=== PATIENT | male | born 1975 | race Two or more races ===

== ENCOUNTER 2025-05-20 16:31 | Emergency (ER) | payer MEDICAID, OTHER ==
[~2025-05-20] VITALS: Ht 170.2 cm; Wt 60.0 kg
[2025-05-20 18:27] VITALS: BP 127/80; PULSE 92; RESP 18; TEMP 97.5; O2SAT 98
[2025-05-20] MEDS ORDERED: AZIT-43 PO (18:37)
--- NOTE | 2025-05-20 18:37 | ED.PDOC ---
SOB-HPI HPI Comments C/O COUGH WITH BRIGHT RED PHLEM X 3 DAYS. REPORTS CHILLS AND "SWEATING IN SLEEP" STATES HE SMOKES MARIJUANA "ALL DAY" DENIES [place], SOB OR CHEST PAIN Chief Complaint: Cough Time Seen by MD: 18:21 Reviewed notes: Nurses Notes, Medications, Allergies Information Source: Patient Mode of Arrival: Ambulatory All Other Systems: Reviewed and Negative (SEE HPI) Physical Exam General Appearance: No Apparent Distress, Normal HEENT: Pharyngeal Erythema, TMs Normal Neck: Full Range of Motion, Non-Tender Respiratory: Chest Non-Tender, No Respiratory Distress, Rhonchi Cardiovascular: No Edema, No JVD, No Murmur, No Gallop, Normal Peripheral Pulses, Regular Rate/Rhythm Breast Exam: Deferred Gastrointestinal: Non Tender, Soft Genitalia: Deferred Pelvic: Deferred Rectal: Deferred Extremities: Normal capillary refill, Normal inspection, Normal range of motion, Non-tender, No pedal edema Musculoskeletal : Apperance: Normal Neurologic: Alert, No Motor Deficits, Normal Affect, Normal Mood, No Sensory Deficits Cerebellar Function: Normal Reflexes: NOT DONE Skin: Dry, Normal Color, Warm Lymphatic: No Adenopathy Was a procedure done? Was a procedure done?: No Differential Dx Differential Diagnosis: Pneumonia, Pharyngitis, URI X-Ray, Labs, Meds, VS Vital Signs Date Time Temp Pulse Resp B/P (MAP) Pulse Ox O2 Delivery O2 Flow Rate FiO2 05/20/25 18:27 97.5 92 18 127/80 (96) 98 97.5 05/20/25 16:32 98.5 90 20 182/82 96 98.5 Time of 1ST Reevaluation: 18:21 Reevaluation 1ST: Unchanged Time of 2ND Reevaluation: 18:36 Reevaluation 2ND: Improved Patient Education/Counseling: Diagnosis, Treatment, Need For Follow Up Family Education/Counseling: No Family Present SEPSIS Sepsis Screen Date sepsis recognized/suspect: May 20, 2025 Time Sepsis recognized/suspect: 1634 Recent Procedure: No On Antibiotic Therapy: No Respiratory Rate >20: No Heart Rate >90: No Temp<36 C (96.8 F) or >38.3 C: No SBP <90 or MAP <65 mmHG: No New Acute Mental Status Change: No Is the patient on CPAP, BIPAP,: No Vital Signs Date Time Temp Pulse Resp B/P (MAP) Pulse Ox O2 Delivery O2 Flow Rate FiO2 05/20/25 18:27 97.5 92 18 127/80 (96) 98 97.5 05/20/25 16:32 98.5 90 20 182/82 96 98.5 Departure 1 Departure Time of Disposition: 18:36 Impression: Primary Impression: URI (upper respiratory infection) Qualified Codes: J06.9 - Acute upper respiratory infection, unspecified Disposition: 01 HOME / SELF CARE / HOMELESS Condition: Stable Discharged With: Self Critical Care Note Critical Care Time?: No Stability Stability form required: No Heart Score Heart Score: Heart Score Response (Comments) Value History N/A 0 EKG N/A 0 Age <45 0 Risk Factors N/A 0 Troponin N/A 0 Total 0 BEN VANP May 20, 2025 18:37
== END 2025-05-20 18:45 | disposition home or self-care (01) ==
LOC: ER 16:31
DX: J06.9 Acute upper respiratory infection, unspecified (principal)